=== PATIENT | male | born 1965 | race Caucasian/White ===

== ENCOUNTER → 2018-06-10 | Day surgery (SDC) | payer BC ==
[~2018-06-10] MED LIST: BACITRACIN 50,000 UNIT VIAL ONE; BUPIVACAINE HCL 0.5% 10ML MPF VIAL INJ ONE; CEFAZOLIN SOD 1 GM VIAL ONE; CRESTOR20 MG PO; DEXAMETHASONE SOD PHOS INJ 4 MG/ML VIAL ONE; FENTANYL CITRATE/PF 100MCG/2 ML INJ ONE; HYDRALAZINE HCL 20 MG/ML VIAL ONE; KETOROLAC TROMETHAMINE 30 MG/ML VIAL ONE; LIDOCAINE HCL 2% LOCAL INJ 5 ML SDV VIAL INJ ONE; LISINOPRIL10 MG PO; MIDAZOLAM HCL 2 MG/2 ML VIAL ONE; MORPHINE SULFATE 2 MG/ML SYR ONE; ONDANSETRON HCL INJ 2 MG/ML VIAL ONE; PAXIL10 MG PO; PRAMIPEXOLE PO; PROPOFOL IV EMULSION 10 MG/ML 20 ML VIAL ONE; SEVOFLURANE INHAL SOLN 250 ML PEN BTL ONE; TESTOSTERO200 MG/1 M INJ; TESTOSTERONE INJ; [UNRECOGNIZED DRUG - OTHER] PO
--- NOTE | 2018-06-15 15:44 | Operative Report ---
DATE OF PROCEDURE: June 10, 2018 PREOPERATIVE DIAGNOSIS: Right hallux rigidus. POSTOPERATIVE DIAGNOSIS: Right hallux rigidus. PLANNED PROCEDURE: Right Taylor bunionectomy with implant. SURGEON: Shen TINAJERO DPM PROCESSOR GRAIN: Romie Conrad DPM ANESTHESIA: General with a postoperative block consisting of 15 mL of 0.5% Marcaine plain. HEMOSTASIS: Pneumatic thigh tourniquet set at 350 mmHg for a total time of approximately 30 minutes. MATERIALS: One [id number] Reference Toe implant size 3, 2-0 Vicryl, 3-0 Vicryl, 4-0 Prolene. ESTIMATED BLOOD LOSS: Less than 10 mL. PATHOLOGY: None. DETAILS OF PROCEDURE: Patient was seen in the preoperative waiting room where the correct procedure and site were identified. The patient was brought to the operating room and placed on the operating table in the supine position. General anesthesia was initiated at this time. A well-padded pneumatic tourniquet was placed about the patient's right thigh, and the right foot, ankle and leg were then scrubbed, prepped and draped in usual aseptic manner. The right foot, ankle and leg were exsanguinated with an Esmarch bandage, and the pneumatic thigh tourniquet was inflated to 350 mmHg for a total time of approximately 30 minutes. Attention was directed to the dorsal aspect of the patient's right 1st metatarsophalangeal joint where there was noted to be less than 10 degrees of range of motion to the 1st metatarsophalangeal joint. A 6 cm linear incision was then made directly over the 1st metatarsophalangeal joint medial to the extensor hallucis longus tendon. The incision was carried through the subcutaneous tissues, them from deeper underlying structures. All vital neurovascular structures were identified, retracted medially and laterally, and all bleeders were cauterized or ligated as deemed necessary. At this time, a linear capsulotomy was performed at the level of the 1st metatarsophalangeal joint, and the joint was freed of all capsular and ligamentous attachments. It should be noted that upon dissection more than 60% of the articular cartilage was damaged on the base of the proximal phalanx and approximately 80% of the head of the metatarsal. The decision was made to proceed with the Taylor bunionectomy with an implant. Utilizing a sagittal saw, the medial eminence, dorsal eminence and lateral eminence of the 1st metatarsal head were resected and passed off to the back table as well as approximately one-third of the base of the proximal phalanx. The wound was then flushed with copious amounts of sterile saline. Next, per lion tamer protocol a size 3 implant was measured. Per lion tamer protocol, the guidewire was drilled into the 1st metatarsal head with proper angulation and confirmed via intraoperative fluoroscopy. Next, the reamer was used to perform drill holes in the 1st metatarsal head. A similar technique was performed to the base of the proximal phalanx. Next, the sizer implant was placed and found to be functioning in proper anatomic alignment. The actual implant was soaked in bacitracin mixed with saline. The grommets were placed per lion tamer protocol and tamped into location. Next, that the actual implant was placed, and the hallux was put through a range of motion and found to be functioning in good anatomic alignment. Positioning was noted to be good on intraoperative fluoroscopy. The wound was then flushed with copious amounts of sterile saline. Capsule and deep tissue were reapproximated with 2-0 Vicryl, subcutaneous tissue with 3-0 Vicryl, and the skin was closed using a running interlocking stitch with 4-0 Prolene. The patient tolerated the procedure and anesthesia well. Patient was transferred to the postoperative recovery unit with vital signs stable and vascular status intact. Patient was monitored there for a short period of time before being sent home with the following written and oral instructions: 1. Keep the dressing clean, dry and intact. 2. The patient is to remain partial weightbearing to the right lower extremity and to avoid excessive ambulation until being seen in the office. 3. The patient was given the office number and instructed to contact us if any problems should arise. Dictated by: Romie Conrad DPM Job#: [id number] KHRIS MEDLEY
== END | disposition home or self-care (01) ==
LOC: OR 05:21
PROVIDERS: ATTEND Podiatrist Foot & Ankle Surgery
DX: M20.21 Hallux rigidus, right foot (principal); I10 Essential (primary) hypertension; G47.33 Obstructive sleep apnea (adult) (pediatric); E78.00 Pure hypercholesterolemia, unspecified; G89.29 Other chronic pain; Z88.8 Allergy status to other drugs, medicaments and biological substances; Z01.810 Encounter for preprocedural cardiovascular examination
CPT/HCPCS: 28291; 93005; J0360; J0690; J1100; J1885; J2001; J2250; J2270; J2405

== ENCOUNTER → 2019-06-11 | Day surgery (SDC) | payer BC ==
[~2019-06-11] MED LIST changes: -BACITRACIN 50,000 UNIT VIAL ONE; -BUPIVACAINE HCL 0.5% 10ML MPF VIAL INJ ONE; +BUPIVACAINE HCL 0.5% INJ 30 ML VIAL INJ ONE; -CEFAZOLIN SOD 1 GM VIAL ONE; +CEFAZOLIN SOD 1 GM/NS 50ML 50 ML IV ONE; -HYDRALAZINE HCL 20 MG/ML VIAL ONE; -MORPHINE SULFATE 2 MG/ML SYR ONE; -ONDANSETRON HCL INJ 2 MG/ML VIAL ONE; +ONDANSETRON HCL INJ 2MG/ML 2ML 2 MG/ML VIAL ONE
--- OUTSIDE RECORDS SUMMARY | 2019-06-11 05:15 | XMS REPORT | Clinical Summary ---
Author Author [facility] Organization [facility] Address Unknown Phone Unavailable Care Team Providers Care Ice Cream Server Name Role Phone Seth Pitt MD PCP Allergies Comments Active Allergy Reactions Severity Noted Date Naproxen Hives 06/16/2016 Medications End Date Status Medication Sig Dispensed Refills Start Date Active LORZONE 750 mg tablet 0 7 Active fluticasone (FLONASE) 50 5 mcg/actuation nasal spray 7 Active HYDROcodone-acetaminophen 0 (NORCO) 10-325 mg per 7 tablet Active PARoxetine (PAXIL) 10 MG 0 tablet 7 Active pramipexole (MIRAPEX) 5 0.75 MG tablet 7 Active rosuvastatin (CRESTOR) 10 4 MG tablet 7 Active testosterone cypionate 0 (DEPOTESTOTERONE 7 CYPIONATE) 200 mg/mL injection Active Problems Problem Noted Date 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 Last Filed Vital Signs Not on file Plan of Treatment Health Maintenance Due Date Last Done Comments COLONOSCOPY SCREENING 2016 SHINGLES VACCINES (#1) 2016 INFLUENZA VACCINE 05/27/2019 Results Not on fileafter 06/10/2018 Insurance Type Payer Benefit Subscriber ID Effective Phone Address Plan / Dates Group PPO BCBS BCBS xxxxxxxxxxxx 2014-P CHOICE resent PPO/[employer] EMPL PPO Advance Directives Patient has advance care planning documents on file. For more information, noe dietz contact: Leonid Petty [address] [place] [id number]
[2019-06-11 08:30] VITALS: BP 106/60
--- NOTE | 2019-06-11 18:14 | Operative Report ---
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 OPERATIVE PROCEDURE: Excision of neuroma second interspace right and excision of neuroma third interspace right. DESCRIPTION OF PROCEDURE: The patient was placed on the OR table in the supine position. The right lower extremity was prepped and draped in the usual manner. A general anesthetic was administered and hemostasis accomplished using a pneumatic cuff set at 350 mmHg at thigh level Procedure #1: Excision of neuroma second interspace. An incision approximately 2.5 cm in length was made in the interspace between the second and third metatarsal head. The incision was deepened. Blood vessels were either ligated or retracted. The hypertrophied nerve was identified and isolated. Both distal branches were then resected. The intermetatarsal ligament between the second and third was then released with a Metzenbaum scissor. This exposed the entire neuroma, which was removed in total. The wound was then flushed with sterile saline solution. Subcutaneous tissue closed with 3-0 Vicryl and skin with 4-0 nylon. Procedure #2: Excision of neuroma third interspace of the right foot. An incision approximately 2.5 cm in length was made in the interspace between the second and third metatarsal head. The incision was deepened. Blood vessels were either ligated or retracted. The hypertrophied nerve was identified and isolated. Both distal branches were then resected. The intermetatarsal ligament between the second and third was then released with a Metzenbaum scissor. This exposed the entire neuroma, which was removed in total. The wound was then flushed with sterile saline solution. Subcutaneous tissue closed with 3-0 Vicryl and skin with 4-0 nylon. Following the procedure, 9 mL of 0.5 Marcaine and 1 mL of Decadron were injected. A sterile compression dressing was applied. At this time, the pneumatic cuff was released and a reflex hyperemia was observed to all digits. The patient tolerated the procedure and the anesthesia well and left the OR to recovery in good condition with vital signs stable. S CHITRA Treadwell (Charley)/YVETTE /[id number] MTDJennifer
== END | disposition home or self-care (01) ==
LOC: OR 05:11
PROVIDERS: ATTEND Podiatrist Foot & Ankle Surgery
DX: G57.61 Lesion of plantar nerve, right lower limb (principal); Z01.810 Encounter for preprocedural cardiovascular examination; I10 Essential (primary) hypertension; G47.33 Obstructive sleep apnea (adult) (pediatric); Z88.8 Allergy status to other drugs, medicaments and biological substances
CPT/HCPCS: 28080 ×2; 93005; J0690; J1100; J1885; J2001; J2250; J2405; J2704; J3010

== ENCOUNTER → 2020-05-26 | Day surgery (SDC) | payer BC, OTHER ==
[~2020-05-26] MED LIST changes: +ACETAMINOPHEN 1000 MG/100 ML IV ONE; +CEFAZOLIN SOD 1 GM VIAL ONE; -KETOROLAC TROMETHAMINE 30 MG/ML VIAL ONE; -MIDAZOLAM HCL 2 MG/2 ML VIAL ONE; +NEOSTIGMINE 1 MG/ML 10ML VIAL ONE; +NUCYNTA75 MG PO
[2020-05-26 10:00] VITALS: BP 148/74
--- NOTE | 2020-05-26 11:08 | Operative Report ---
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 PLANNED PROCEDURE: Excision of right 2nd and 3rd interspace neuroma. AGRICULTURE SCIENTIST: Romie Conrad DPM. ANESTHESIA: General with a postoperative block consisting of 10 mL of 0.5% Marcaine plain mixed with 1 mL of dexamethasone phosphate. HEMOSTASIS: Pneumatic thigh tourniquet set at 350 mmHg for a total time of approximately 30 minutes. MATERIALS: 3-0 Vicryl, 4-0 Prolene. ESTIMATED BLOOD LOSS: Less than 10 mL. PATHOLOGY: Right soft tissue mass sent for gross specimen. PROCEDURE NOTE: The patient was seen in the preoperative waiting room where the correct procedure and site were identified. The patient was brought into the operating room and placed on the operating table in supine position. General anesthesia was initiated. At this time, a well-padded pneumatic tourniquet was placed about the patient's right thigh. The right foot, ankle, and leg was exsanguinated with an Esmarch bandage and the pneumatic thigh tourniquet was inflated to 350 mmHg for a total time of approximately 30 minutes. Attention was directed to the dorsal aspect of the patient's right foot, where incisions were noted. A 4 cm linear incision was made directly over the 3rd interspace. The incision site was then dissected down to the level of the deep transverse metatarsal ligament, which was incised to allow for good visualization of the interspace. At this point, a stump neuroma was identified. It was noted to be large, tortuous and inflamed. It was grasped with a hemostat and dissected proximally, cut proximally and allowed to retract into the foot. The wound was then copiously irrigated with sterile saline. This specimen was sent for gross pathology. The wound was then copiously irrigated with sterile saline. Deep tissue was reapproximated with 3-0 Vicryl, subcutaneous tissue with 3-0 Vicryl. The skin was closed using a running interlocking stitch with 4-0 nylon. Attention was directed to the 2nd interspace, where a 4 cm linear incision was made directly over the previous incision. The dissection was carried down proximally to the level of the deep transverse metatarsal ligament, which was incised to allow for good visualization of the 2nd interspace. This was explored. Some scar tissue was noted and excised and passed off to the back table but no recurrence of neuroma was noted in the 2nd interspace. The wound was then copiously irrigated with sterile saline. Capsule and deep tissue were reapproximated with 3-0 Vicryl, subcutaneous tissue with 3-0 Vicryl. The skin was closed using a running interlocking stitch with 4-0 Prolene. The patient tolerated the procedure and anesthesia well. The patient was transferred to postoperative recovery room with vital signs stable and vascular status intact. The patient was monitored there for a short period of time before being sent home with the following written and oral instructions: 1. Keep the dressing clean, dry, and intact. 2. The patient is to remain partial weightbearing in a postop shoe to avoid excessive ambulation until being seen in the office. 3. The patient was given office number and instructed to contact us if any problems arise. Dictated by Romie Conrad DPM S CHITRA Treadwell (Charley)/MODL /[id number]
== END | disposition home or self-care (01) ==
LOC: OR 05:30
PROVIDERS: ATTEND Podiatrist Foot & Ankle Surgery
DX: G57.61 Lesion of plantar nerve, right lower limb (principal); M79.9 Soft tissue disorder, unspecified; G47.33 Obstructive sleep apnea (adult) (pediatric); I10 Essential (primary) hypertension; G89.29 Other chronic pain; F32.9 Major depressive disorder, single episode, unspecified; Z88.8 Allergy status to other drugs, medicaments and biological substances; Z01.810 Encounter for preprocedural cardiovascular examination; Z01.812 Encounter for preprocedural laboratory examination; Z11.59 Encounter for screening for other viral diseases; M96.1 Postlaminectomy syndrome, not elsewhere classified
CPT/HCPCS: 88304; 93005; J0690; J1100; J2001; J2405; J2710; J3010; U0002

== ENCOUNTER → 2022-03-14 | Outpatient (CLI) | payer BC ==
[~2022-03-14] MED LIST changes: -ACETAMINOPHEN 1000 MG/100 ML IV ONE; -BUPIVACAINE HCL 0.5% INJ 30 ML VIAL INJ ONE; -CEFAZOLIN SOD 1 GM VIAL ONE; -CEFAZOLIN SOD 1 GM/NS 50ML 50 ML IV ONE; -DEXAMETHASONE SOD PHOS INJ 4 MG/ML VIAL ONE; -FENTANYL CITRATE/PF 100MCG/2 ML INJ ONE; +IOPAMIDOL 370 MG/ML 100 ML INFUS..BTL INJ ONE; -LIDOCAINE HCL 2% LOCAL INJ 5 ML SDV VIAL INJ ONE; +METOPROLOL TARTRATE 25 MG TAB ONE; +METOPROLOL TARTRATE INJ 1 MG/ML VIAL ONE; -NEOSTIGMINE 1 MG/ML 10ML VIAL ONE; +NITROGLYCERIN 0.4 MG SUBL ONE; -ONDANSETRON HCL INJ 2MG/ML 2ML 2 MG/ML VIAL ONE; -PROPOFOL IV EMULSION 10 MG/ML 20 ML VIAL ONE; -SEVOFLURANE INHAL SOLN 250 ML PEN BTL ONE; +SODIUM CHLORIDE 0.9% 100 ML ONE
[2022-03-14 08:34] LABS: CREATININE, SERUM 1.24 mg/dL (0.72-1.25)
== END ==
LOC: CT 07:36
PROVIDERS: ATTEND Internal Medicine Cardiovascular Disease
DX: R07.9 Chest pain, unspecified (principal)
CPT/HCPCS: 36415; 75574; 82565; 84520; J7050; Q9967